=== PATIENT | female | born 2000 | race Caucasian/White ===

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

== ENCOUNTER 2023-08-30 04:16 | Emergency (ER) | payer BC, MEDICAID ==
[~2023-08-30] VITALS: Ht 172.7 cm; Wt 59.5 kg
[2023-08-30 04:28] VITALS: TEMP 98.4
[2023-08-30 06:53] VITALS: BP 130/92; PULSE 107
== END 2023-08-30 08:00 | disposition left against medical advice (07) ==
LOC: COL.ER 04:16
DX: R41.82 Altered mental status, unspecified (principal)

== ENCOUNTER 2023-10-24 16:33 | Emergency (ER) | payer BC ==
[~2023-10-24] VITALS: Ht 172.7 cm; Wt 56.8 kg
[~2023-10-24 16:33] MED LIST changes: +ZOFRAN ODT4 MG PO
[2023-10-24 18:31] LABS: BASO # 0.1 K/mm3 (0.0-0.2); BASO % 1.2 % (0.0-2.0); EOS # 0.1 K/mm3 (0.0-0.7); EOS % 1.2 % (0.0-4.0); GRAN # 4.7 K/mm3 (1.4-6.5); GRAN % 61.2 % (42.2-75.2); HEMATOCRIT 37.9 % (37.0-47.0); HEMOGLOBIN 12.5 g/dl (12.5-16.0); LYMPH # 1.8 K/mm3 (1.2-3.4); LYMPH % 23.4 % (20.0-51.0); MEAN CELL VOLUME 98 fl (80.0-100.0); MEAN CORPUSCULAR HEMOGLOBIN 32 pg (27-31); MEAN CORPUSCULAR HGB CONC 33 g/dl (33.0-37.0); MEAN PLATELET VOLUME 9.2 fl (7.4-10.4); MONO % 12.7 % (1.7-9.3); PLATELET COUNT 254 K/mm3 (130-400); RED BLOOD COUNT 3.87 M/mm3 (4.10-5.30); REDCELL DISTRIBUTION WIDTH-CV 12.6 % (11.5-14.5)
[2023-10-24 18:48] LABS: ALANINE AMINOTRANSFERASE 18 U/L (0-55); ALBUMIN 4.6 g/dL (3.5-5.0); ALKALINE PHOSPHATASE 54 U/L (40-150); ANION GAP 9 mmol/L (7-16); AST,SGOT 19 U/L (5-34); BILIRUBIN,TOTAL 0.5 mg/dL (0.2-1.2); BLOOD UREA NITROGEN 16 mg/dL (7-19); CALCIUM 8.6 mg/dL (8.4-10.2); CHLORIDE 108 mEq/L (98-107); CREATININE, serum 0.72 mg/dL (0.57-1.11); GLUCOSE 102 mg/dL (70-99); POTASSIUM 3.5 mEq/L (3.5-4.5); SODIUM 142 mEq/L (136-145); TOTAL PROTEIN 7.6 g/dl (6.2-8.1)
[2023-10-24 19:01] LABS: COLLECTION METHOD CLEAN CATCH
[2023-10-24 19:15] LABS: TRICYCLIC ANTIDEPRESS URINE NEGATIVE (NEGATIVE)
[2023-10-24 19:29] LABS: PH 6.5 (5.0-8.5); URINE APPEARANCE CLEAR (CLEAR/HAZY); URINE BLOOD 2+ (NEGATIVE); URINE COLOR YELLOW (YELLOW); URINE GLUCOSE NEGATIVE (NEGATIVE); URINE KETONE 1+ (NEGATIVE); URINE NITRATE NEGATIVE (NEGATIVE); URINE PROTEIN(semi-quant) NEGATIVE (NEGATIVE); URINE UROBILINOGEN 0.2 E.U/dL (0.2-1.0)
[2023-10-24] MEDS ORDERED: LORazepam 2 MG/ML 1 ML VIAL IM ONE (21:15)
[2023-10-24] MEDS ORDERED: Haloperidol Lactate 5 MG/ML VIAL IM ONE (21:15)
[2023-10-24 22:16] LABS: SALICYLATE < 5.0 mg/dL (15.0-30.0)
[2023-10-24 22:17] LABS: ALCOHOL(ethanol),MEDICAL < 10 mg/dL (0-10)
[2023-10-25] MEDS ORDERED: Nicotine 21 MG DAILY PATCH TD ONE ×2 (09:15→16:00)
[2023-10-25] MEDS ORDERED: LORazepam 0.5 MG TAB PO ONE ×2 (15:30→18:00)
[2023-10-25] MEDS ORDERED: OLANZapine 10 MG Orally-Disinteg TAB PO SCH (21:00)
[2023-10-26] MEDS ORDERED: OLANZapine 5 MG TAB PO PRN (06:15)
[2023-10-26] MEDS ORDERED: hydrOXYzine HCl 25 MG TAB PO SCH (09:00)
[2023-10-26] MEDS ORDERED: OLANZapine 10 MG Orally-Disinteg TAB PO ONE ×2 (10:30→14:45)
[2023-10-26] MEDS ORDERED: diphenhydrAMINE 50 MG/ML 1 ML VIAL IM ONE (12:30)
[2023-10-26] MEDS ORDERED: Ziprasidone 10 MG,Water For Injection,Sterile 0.5 ML IM ONE (12:30)
[2023-10-26] MEDS ORDERED: Nicotine 21 MG DAILY PATCH TD ONE (22:00)
[2023-10-27] MEDS ORDERED: Nicotine 21 MG DAILY PATCH TD ONE (13:00)
[2023-10-27] MEDS ORDERED: OLANZapine 10 MG Orally-Disinteg TAB PO ONE (13:30)
[2023-10-28 12:16] VITALS: TEMP 98.6
[2023-10-28] MEDS ORDERED: OLANZapine 10 MG Orally-Disinteg TAB PO ONE (13:45)
[2023-10-28 17:07] VITALS: BP 107/59; PULSE 66
== END 2023-10-28 18:50 ==
LOC: COL.ER 16:33
PROVIDERS: Nurse Practitioner
DX: F59 Unspecified behavioral syndromes associated with physiological disturbances and physical factors (principal); F17.290 Nicotine dependence, other tobacco product, uncomplicated
CPT/HCPCS: J1200; J1630; J2060; J3486